=== PATIENT | female | born 1990 | race Caucasian/White ===

== ENCOUNTER 2020-06-05 15:27 | Emergency (ER) | payer MEDICARE, MEDICAID ==
[2020-06-05] MEDS ORDERED: HALOPERIDOL 5 MG/ML VIAL IVP ONE (15:37)
[2020-06-05] MEDS ORDERED: KETOROLAC 30 MG/ML VIAL IVP STA (15:37)
[2020-06-05] MEDS ORDERED: diphenhydrAMINE INJ 50 MG/ML VIAL IVP STA (15:37)
[2020-06-05] MEDS ORDERED: SODIUM CHLORIDE 0.9% 1,000 ML IV STA (15:37)
--- NOTE | 2020-06-05 15:40 | ED Physician Documentation ---
PD HPI HEADACHE - Stated complaint Stated Complaint: CAMARGO, N/V - Chief complaint Chief Complaint: Neuro - History obtained from History obtained from: Patient, Family - History of Present Illness Timing - onset: Today (30-year-old woman with frequent headaches, history of migraines. Developed a gradual onset severe headache consistent with prior migraines at 10 AM this morning with light and sound sensitivity. Tried Zofran and Benadryl without relief. No fevers. No possibility of .) Review of Systems Constitutional: denies: Fever, Chills Nose: denies: Rhinorrhea / runny nose, Congestion Throat: denies: Sore throat Cardiac: denies: Chest pain / pressure, Palpitations PD PAST MEDICAL HISTORY - Allergies Allergies/Adverse Reactions: Allergies Allergy/AdvReac Type Severity Reaction Status Date / Time dexamethasone [From Decadron] Allergy Unknown Verified 06/05/20 15:36 drospirenone [From COURTNEY (28)] Allergy Unknown Verified 06/05/20 15:36 duloxetine [From Cymbalta] Allergy Unknown Verified 06/05/20 15:36 ethinyl estradiol Allergy Unknown Verified 06/05/20 15:36 [From COURTNEY (28)] fentanyl Allergy Unknown Verified 06/05/20 15:36 metoclopramide [From Reglan] Allergy Unknown Verified 06/05/20 15:36 topiramate [From Topamax] Allergy Unknown Verified 06/05/20 15:36 PD ED PE NORMAL - Vitals Vital signs reviewed: Yes - General General: Alert and oriented X 3, Other (She is whimpering in pain, photophobic) - HEENT HEENT: PERRL, EOMI - Neck Neck: Supple, no meningeal sign, No bony TTP - Neuro Neuro: Alert and oriented X 3, 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 As such I doubt subarachnoid hemorrhage. There are no infectious symptoms such as fever or stiff neck to make me suspect meningitis. No carbon monoxide exposure by history. She was treated with IV fluids, Haldol, Benadryl, and Toradol with excellent relief of her headache and requesting discharge. Departure - Departure Disposition: 01 Home, Self Care Clinical Impression: Migraine Qualifiers: Migraine type: with aura Status migrainosus presence: with status migrainosus Intractability: not intractable Qualified Code(s): G43.101 - Migraine with aura, not intractable, with status migrainosus Condition: Good Record reviewed to determine appropriate education?: Yes Instructions: ED Headache Migraine Comments: Call your doctor to arrange a follow-up appointment, make the next available appointment. In the interim, return anytime if worse or if new symptoms develop.
[2020-06-05 16:37] VITALS: BP 120/87
== END 2020-06-05 17:10 | disposition home or self-care (01) ==
LOC: ED 15:27
DX: G43.101 Migraine with aura, not intractable, with status migrainosus (principal)
CPT/HCPCS: 96374; 99283; 99284; J1200